=== PATIENT | female | born 1985 | race Caucasian/White ===

== ENCOUNTER 2020-09-13 09:55 | Emergency (ER) | payer BC, SELFPAY ==
--- NOTE | ~2020-09-13 | XR_ITS ---
EXAMINATION: XR chest 1V portable EXAM DATE: 09/13/2020 11:22 INDICATION: Increasing shortness of breath. Diagnosed COVID positive on Monday. TECHNIQUE: Portable AP frontal chest x-ray was obtained. There is no prior study for comparison. FINDINGS: The lungs are clear. There are no pleural effusions. The cardiomediastinal silhouette is within normal limits. There is no pneumothorax suspected. The bones and soft tissues are unremarkab le. IMPRESSION: No acute cardiopulmonary findings. Reviewed, dictated and finalized at location A.
[2020-09-13 09:58] VITALS: BP 111/85; PULSE 97; RESP 20; TEMP 36.4; O2SAT 100
[2020-09-13] MEDS: DEXAMETHASONE SOD PHOS INJ 4 MG/ML VIAL 10 MG IV PUSH (11:02)
[2020-09-13] MEDS: SODIUM CHLORIDE 0.9% IV 1,000 ML 999 ML IV CONT (11:02)
[2020-09-13 11:21] LABS: Basophils Percent Auto 0.4 % (0.2-1.2); Hematocrit 40.3 % (37.0-47.0); Hemoglobin 13.8 g/dL (12.0-15.0); Lymphocytes Absolute Auto 0.98 K/mm3 (0.9-3.2); Lymphocytes Percent Auto 39.2 % (18.3-44.2); Mean Corpuscular HGB Conc 34.2 g/dl (32-36); Mean Corpuscular Volume 87.6 fl (80-100); Mean Platelet Volume 9.4 fl (7.4-10.4); Monocytes Absolute Auto 0.3 K/mm3 (0.1-0.6); Monocytes Percent Auto 11.2 % (2.6-8.5); Neutrophils Absolute Auto 1.2 K/mm3 (1.3-6.7); Neutrophils Percent Auto 49.2 % (45.5-73.1); Platelet Count Result 180 k/mm3 (150-375); Red Cell Distribution Width 11.4 % (11.5-14.5); White Blood Count 2.5 K/mm3 (4.5-10.0)
[2020-09-13 11:34] VITALS: BP 110/92; PULSE 84; RESP 18; O2SAT 100
[2020-09-13 11:36] LABS: Alanine Aminotransferase 19 U/L (4-35); Albumin Level 4.2 g/dL (3.5-5.1); Alkaline Phosphatase 50 U/L (38-126); Anion Gap 9 mmol/L (8-16); Aspartate Amino Transferase 30 U/L (14-36); Bilirubin,Total 0.3 mg/dL (0.2-1.3); Blood Urea Nitrogen 13 mg/dL (7-17); Calcium 8.9 mg/dL (8.4-10.2); Carbon Dioxide 30 mmol/L (22-30); Chloride 103 mmol/L (98-107); Estimated CRCL calculation 62 ml/min; Estimated Glomerular Filt Rate > 60; Glucose 94 mg/dL (65-105); Potassium 3.6 mmol/L (3.4-5.0); Sodium 142 mmol/L (137-145)
[2020-09-13 11:37] LABS: D Dimer 0.27 ug/mL (<0.48)
[2020-09-13 11:48] LABS: Troponin I < 0.012 ng/mL (0.000-0.034)
--- NOTE | 2020-09-13 12:31 | ED.GENADULT ---
HPI - General Adult General Chief complaint: Upper Respiratory Infection Stated complaint: +covid Time Seen by Provider: 09/13/20 10:13 Source: patient Mode of arrival: ambulatory Limitations: no limitations History of Present Illness HPI narrative: Patient a 35-year-old female who presents with Covid positive upper respiratory symptoms noting fatigue shortness of breath with activity and a cough that developed today patient was diagnosed on Monday her symptoms began Monday. Patient's been taking some [id number]-[id number] medications with minimal improvement patient has mainly been resting at home. Patient denies any vomiting or diarrhea at this time. Patient resting comfortably in the room on arrival with normal vital signs and does not appear uncomfortable. Patient's primary complaint is her shortness of breath Related Data Home Medications Medication Instructions Recorded Confirmed levonorgestrel-ethinyl estrad 1 tablet PO DAILY 09/13/20 09/13/20 [Vienva] spironolactone 25 mg PO DAILY 09/13/20 09/13/20 Allergies Allergy/AdvReac Type Severity Reaction Status Date / Time latex Allergy Mild Swelling Verified 09/13/20 10:04 Review of Systems Review of Systems: All systems reviewed & are unremarkable except as noted in HPI and below PMFSH Social History Social History Gender identity (if verbalized by the patient): Female Exam Narrative: Exam Narrative: GENERAL: Well-appearing, well-nourished, and in no acute distress. HEAD: Normocephalic, atraumatic. EYES: PERRLA and EOMI. ENT: Nares clear, no rhinorrhea or epistaxis. Mucous membranes moist. CHEST: Clear to auscultation. No respiratory distress. No wheezes rales or rhonchi HEART: Regular rate and rhythm. No murmur heard. Normal peripheral pulses. ABDOMEN: Soft, nontender, nondistended EXTREMITIES: Normal range of motion. No edema. SKIN: Warm, dry, no rash. NEURO: No focal deficits. Alert and oriented x3. PSYCH: Normal mood and affect. Course Course Emergency Course: Patient in the room no distress aware of case findings treatment plan and diagnosis negative D-dimer pulmonary embolism felt unlikely cough began today no pneumonia on chest x-ray or clinically patient is afebrile nontoxic-appearing with normal vital signs ABCs and vital signs intact will be sent home with an MDI and supportive medications advised to get a pulse oximeter and will return if symptoms worsen or concerns and will follow with primary care by phone tomorrow to set up for reevaluation Vital Signs Vital signs: Vital Signs Temperature 97.5 F L 09/13/20 09:58 Pulse Rate 97 09/13/20 09:58 Respiratory Rate 20 09/13/20 09:58 Blood Pressure 111/85 09/13/20 09:58 Pulse Oximetry 100 09/13/20 09:58 Temperature 97.5 F L 09/13/20 09:58 Pulse Rate 84 09/13/20 11:34 Respiratory Rate 18 09/13/20 11:34 Blood Pressure 110/92 H 09/13/20 11:34 Pulse Oximetry 100 09/13/20 11:34 Medical Decision Making MDM Narrative Medical decision making narrative: Patient in the room no distress aware of case findings treatment plan and diagnosis agreeing to follow-up as instructed or to return if symptoms worsen or concerns Vital Signs Vital Signs: Vital Signs Temperature 97.5 F L 09/13/20 09:58 Pulse Rate 97 09/13/20 09:58 Respiratory Rate 20 09/13/20 09:58 Blood Pressure 111/85 09/13/20 09:58 Pulse Oximetry 100 09/13/20 09:58 Temperature 97.5 F L 09/13/20 09:58 Pulse Rate 84 09/13/20 11:34 Respiratory Rate 18 09/13/20 11:34 Blood Pressure 110/92 H 09/13/20 11:34 Pulse Oximetry 100 09/13/20 11:34 Lab Data Result diagrams: 09/13/20 10:54 09/13/20 10:54 Labs: Lab Results 09/13/20 09/13/20 09/13/20 Range/Units 10:54 10:54 10:54 WBC 2.5 L (4.5-10.0) K/mm3 RBC 4.60 (4.2-5.4) M/mm3 Hgb 13.8 (12.0-15.0) g/dL Hct 40.3 (37.0-47.0)
--- NOTE | 2020-09-13 12:46 | ECG_ITS ---
Measurements Intervals [place] Rate: 76 P: 53 MS: 170 QRS: 48 QRSD: 85 T: 48 QT: 360 QTc: 407 Interpretive Statements SINUS RHYTHM POSSIBLE LEFT ATRIAL ENLARGEMENT INCOMPLETE RIGHT BUNDLE BRANCH BLOCK BORDERLINE R WAVE PROGRESSION, ANTERIOR LEADS BASELINE WANDER- II, III BORDERLINE ECG Electronically Signed On 09-13-2020 14:26:10 CDT by Robel Sal D.O.
[2020-09-13 12:53] VITALS: BP 99/69; PULSE 84; RESP 19; O2SAT 100
== END 2020-09-13 12:54 | disposition home or self-care (01) ==
PROVIDERS: Emergency Medicine Emergency Medical Services; Emergency Provider Emergency Medicine; PCP Nurse Practitioner Psychiatric/Mental Health
DX: U07.1 COVID-19 (principal)
CPT/HCPCS: 36415; 71045; 80053; 84484; 85025; 85380; 93005; 96361; 96374; 99284; J1100; J7030